=== PATIENT | female | born 1995 | race Caucasian/White ===

== ENCOUNTER 2021-06-11 15:48 | Emergency (ER) | payer OTHER ==
--- NOTE | 2021-06-11 16:15 | EDM.PDOC ---
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 During an exercise the pt had a teammate taller than her come down with his elbow on the superior aspect of her R lateral clavicle and shoulder. The pt states she has constant pain in the shoulder and worse with movement. Pn is 4/10 with movement and 2/10 at rest. Denies other injury, . Right Shoulder Pain Score (Numeric/FACES): 5 - Related Data Allergies Allergy/AdvReac Type Severity Reaction Status Date / Time azithromycin [From Zithromax] Allergy Rash Verified 06/11/21 16:11 Home Meds: Home Meds . [Unable to Verify Home Med List] 06/11/21 [History] Review of Systems - Review of Systems Review Of Systems: Comprehensive ROS is negative, except as noted in HPI. ED EXAM, GENERAL - Physical Exam Exam: See Below Exam Limited By: No Limitations General Appearance: Alert, No Apparent Distress Neck: Normal Inspection, Supple, Non-Tender, Full Range of Motion Respiratory/Chest: No Respiratory Distress, Lungs Clear, Normal Breath Sounds, No Accessory Muscle Use, Chest Non-Tender Cardiovascular: Normal Peripheral Pulses, Regular Rate, Rhythm, No Edema, No Gallop, No JVD, No Murmur, No Rub GI/Abdominal: Soft, Non-Tender (Female) Exam: Deferred Rectal (Female) Exam: Deferred Back Exam: Normal Inspection, Full Range of Motion Extremities: Other (tenderness with palpation of lily anterior superior shoulder. Neg empty can test. Pain with flexion and ext of bicep. ) Neurological: Alert, Oriented, CN II-XII Intact, Normal Cognition, Normal Gait, Normal Reflexes, No Motor/Sensory Deficits Skin Exam: Warm, Dry, Intact Course - Vital Signs Last Recorded V/S: Last Vital Signs Temp 97.2 F 06/11/21 16:12 Pulse 92 06/11/21 16:12 Resp 18 06/11/21 16:12 BP 140/91 H 06/11/21 16:12 Pulse Ox 99 06/11/21 16:12 - Re-Assessments/Exams Free Text/Narrative Re-Assessment/Exam: 06/11/21 16:54 The Xray is negative for any acute findings. Departure - Departure Time of Disposition: 16:54 Disposition: Home, Self-Care 01 Condition: Good Clinical Impression: Pain of shoulder after trauma - Discharge Information *PRESCRIPTION DRUG MONITORING PROGRAM REVIEWED*: Not Applicable *COPY OF PRESCRIPTION DRUG MONITORING REPORT IN PATIENT CHRIS: Not Applicable Instructions: Shoulder Pain Additional Instructions: Use tylenol and motrin for pain as needed. Ice and rest your extremity. If symptoms do not resolve in 10-14 days contact your primary care facility for further evaluation. Sepsis Event Note (ED) - Focused Exam Vital Signs: Vital Signs Temp Pulse Resp BP Pulse Ox 06/11/21 16:12 97.2 F 92 18 140/91 H 99
--- NOTE | 2021-06-11 16:38 | CR ---
EXAMINATION: Shoulder Comp Rt 3 views SEX: Female AGE: 25 years CLINICAL HISTORY: 25-year-old female complaining of anterior right shoulder pain. Interpretation: Negative exam. Homogeneous normal bone density for age and gender. Left lung apex is clear. No sign of right shoulder fracture, glenohumeral dislocation or acromioclavicular separation. No juxta articular rotator cuff tendon calcifications. No pathologic skeletal lesion. No arthritic degenerative changes. No foreign bodies.
== END 2021-06-11 17:19 | disposition home or self-care (01) ==
LOC: DL.ED 15:48
DX: G89.11 Acute pain due to trauma (principal); M25.511 Pain in right shoulder; Z88.1 Allergy status to other antibiotic agents
CPT/HCPCS: 73030-RT; 99283-25